=== PATIENT | male | born 1995 | race African-American/Black ===

== ENCOUNTER 2024-09-12 12:07 | Emergency (ER) | payer SELFPAY ==
[2024-09-12 12:11] VITALS: BP 133/77; PULSE 98; TEMP 37.1; O2SAT 97; BMI 23.0
--- NOTE | 2024-09-12 12:26 | XR_ITS ---
[address] [address] Patient Name: MONICA HUANG MRN: [id number] date: 1995 Sex: M Assigned Patient Location: ER Current Patient Location: ED.MAIN Accession/Order Number: [id number] Exam Date: 09/12/2024 12:20 Report Date: 09/12/2024 12:43 At the request of: IRENE ADAN Procedure: XR hand LT min 3V PROCEDURE: XR hand LT min 3V COMPARISON: None. HISTORY: c/o pain FINDINGS: BONES:No fracture, acute abnormality, or significant arthropathy. SOFT TISSUES:Negative. No visible soft tissue swelling. EFFUSION:None visible. OTHER: Negative. XR/XR hand LT min 3V IMPRESSION: No acute fracture Electronically authenticated by: CHRIS OATES Date: 09/12/2024 12:43
--- NOTE | 2024-09-12 13:00 | ED_ITS ---
HPI HPI - General Adult General Chief complaint: Extremity Injury, Upper Stated complaint: UPPER EXTREMITY INJURY Time Seen by Provider: 09/12/24 12:27 Source: patient Mode of arrival: walk-in Limitations: no limitations History of Present Illness HPI narrative: Patient presents to ED complaining of left hand pain. He said he fell asleep last night and the back of his hand just above the wrist was pinned against a metal bar in his bed. He did not notice it till he woke up and then he was having some pain and swelling there. 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 No acute trauma no fall. No other pain or swelling. No redness no fevers. Related Data Home Medications ?Medication ?Instructions ?Recorded ?Confirmed No Known Home Medications 09/12/24 09/12/24 Allergies Allergy/AdvReac Type Severity Reaction Status Date / Time No Known Drug Allergies Allergy Verified 09/12/24 12:14 Opioid HPI Opioid Management Most Recent Opioid Data: Last Pain Scale 5 09/12/24 12:24 09/12/24 Review of Systems ROS Status of ROS 10 or more systems reviewed and unremark able except as noted in history and below PFSH PFSH Social History Little interest or pleasure in doing things: not at all Feeling down, depressed, or hopeless: not at all Exam Narrative Exam Narrative: General: alert, no acute distress Cardiovascular: regular rate and rhythm, normal peripheral perfusion. Respiratory: Lungs CTA, respirations non labored. Extremities: Mild swelling and tenderness to palpation on the dorsal aspect of the hand near the metacarpal region. Very minimal swelling. No redness no evidence of cellulitis. Normal distal pulses and sensation Neurological: oriented x 4, LOC appropriate for age. Constitutional Vital Signs, click to edit/add: Last Vital Signs Temp 98.8 F 09/12/24 12:11 Pulse 98 H 09/12/24 12:11 Resp 20 09/12/24 12:11 BP 133/77 09/12/24 12:11 Pulse Ox 97 09/12/24 12:11 O2 Del Method Room Air 09/12/24 12:11 Course Vital Signs Vital signs: Vital Signs Temperature 98.8 F 09/12/24 12:11 Pulse Rate 98 H 09/12/24 12:11 Respiratory Rate 20 09/12/24 12:11 Blood Pressure 133/77 09/12/24 12:11 Pulse Oximetry 97 09/12/24 12:11 Oxygen Delivery Method Room Air 09/12/24 12:11 Temperature 98.8 F 09/12/24 12:11 Pulse Rate 98 H 09/12/24 12:11 Respiratory Rate 20 09/12/24 12:11 Blood Pressure 133/77 09/12/24 12:11 Pulse Oximetry 97 09/12/24 12:11 Oxygen Delivery Method Room Air 09/12/24 12:11 Medical Decision Making MDM Narrative Medical decision making narrative: X-ray negative for any acute findings. Most likely the back of the hand was pinned against a metal bar and caused some inflammation and swelling due to the pressure on it throughout the night. Patient will be off work for today and tomorrow. Return to ED if worsening symptoms otherwise follow-up as needed. Patient comfortable care plan for home Differential Diagnosis Differential Diagnosis: Fracture sprain strain contusion Imaging Data Chest x-ray: Radiologist's impression: ITS Impressions Hand X-Ray 09/12/24 12:26 IMPRESSION: No acute fracture Electronically authenticated by: CHRIS OATES Date: 09/12/2024 12:43 Discharge Plan Discharge Chief Complaint: Extremity Injury, Upper Clinical Impression: Hand sprain Patient Disposition: Home, Self-Care Time of Disposition Decision: 12:53 Condition: Good Mode of Transportation: Private Vehicle Prescriptions / Home Meds: No Action No Known Home Medications Print Language: Khmer Instructions: Sprain (ED) Referrals: Physician,Non-Staff, MD [Primary Care Provider] - 1 week
== END 2024-09-12 13:06 | disposition home or self-care (01) ==
PROVIDERS: Emergency Provider Emergency Medicine
DX: S63.92XA Sprain of unspecified part of left wrist and hand, initial encounter (principal); X58.XXXA Exposure to other specified factors, initial encounter
CPT/HCPCS: 73130; 99283